=== PATIENT | female | born 1960 | race Caucasian/White ===

== ENCOUNTER 2023-08-21 18:01 | Observation (INO) | payer OTHER ==
[2023-08-21] MEDS ORDERED: ASPIRIN 81 MG PO STA (18:27)
[2023-08-21] MEDS ORDERED: SODIUM CHLORIDE 0.9% 1,000 ML IV STA (18:27)
[2023-08-21] MEDS ORDERED: NITROGLYCERIN SL TABS 0.4 MG TAB SUBLINGUAL STA (18:27)
[2023-08-21 18:39] LABS: Basophils # (A) 0.1 k/uL (0-0.2); Basophils % (A) 1 %; Eosinophils # (A) 0.1 k/uL (0-0.7); Eosinophils % (A) 1 %; HCT 41.3 % (34.0-46.0); HGB 14.1 gm/dL (11.4-16.0); Lymphocytes % (A) 37 %; MCH 31.1 pg (25.0-35.0); MCHC 34.2 g/dL (31.0-37.0); MCV 91.2 fL (80.0-100.0); Mean Platelet Volume 7.6; Monocytes # (A) 0.3 k/uL (0-1.0); Monocytes % (A) 5 %; Neutrophils % (A) 54 %; Platelet Count 279 k/uL (150-450); RBC 4.53 m/uL (3.80-5.40); RDW 12.6 % (11.5-15.5); WBC 5.5 k/uL (3.8-10.6)
[2023-08-21 18:52] LABS: ALT 21 U/L (4-34); AST 29 U/L (14-36); African American GFR (CKD) >90 (>60 ml/min/1.73 sqM); Albumin 4.9 g/dL (3.5-5.0); Alkaline Phosphatase 71 U/L (38-126); Anion Gap 9 mmol/L; Blood Urea Nitrogen 11 mg/dL (7-17); Calcium 10.2 mg/dL (8.4-10.2); Carbon Dioxide 28 mmol/L (22-30); Chloride 105 mmol/L (98-107); Glucose 84 mg/dL (74-99); Lipase 123 U/L (23-300); Non-African American GFR(CKD) 89 (>60 ml/min/1.73 sqM); Partial Thromboplastin Time 24.6 sec (22.0-30.0); Prothrombin Time 10.2 sec (9.0-12.0); Sodium 142 mmol/L (137-145); Total Bilirubin 0.5 mg/dL (0.2-1.3); Total Protein 8.1 g/dL (6.3-8.2)
--- NOTE | 2023-08-21 18:58 | XR ---
EXAMINATION TYPE: XR chest 2V DATE OF EXAM: 08/21/2023 COMPARISON: NONE TECHNIQUE: PA and lateral views submitted. HISTORY: Chest pain FINDINGS: The lungs are clear and there is no pneumothorax, pleural effusion, or focal pneumonia. Heart size normal and no overt failure. Osseous structures demonstrate hypertrophic and degenerative changes of the spine. Hyperinflation lungs suggest COPD. IMPRESSION: 1. No acute process.
[2023-08-21 19:00] LABS: NT-Pro-B-Type Natriuretic Pept 167 pg/mL
[2023-08-21] MEDS ORDERED: KETOROLAC 15 MG/ML 1 ML VIAL IVP STA (19:25)
[2023-08-21] MEDS ORDERED: LORazepam 0.5 MG TAB PO STA (22:57)
[2023-08-21] MEDS ORDERED: NALOXONE 0.4 MG/ML 1 ML VIAL IV PRN (23:07)
--- NOTE | 2023-08-21 23:07 | ED ---
General Adult HPI - General Chief complaint: Chest Pain Stated complaint: chest pain Time Seen by Provider: 08/21/23 18:07 Source: patient, RN notes reviewed, old records reviewed Mode of arrival: ambulatory Limitations: no limitations - History of Present Illness Initial comments: Patient is a 63-year-old female who presents emergency department with chest pain. Has had that intermittently over the last 2-3 weeks. States it is somewhat of a discomfort that radiates across her front chest. Occasionally in her back but currently does not have that. Denies any lightheadedness or shortness breath. Denies any abdominal pain, nausea, vomiting. No known palliative or provocative factors. Not worse with movement or palpation. No nausea or vomiting. States it does somewhat radiate towards her shoulders/arms. No cardiac history. Does have a history of hyperlipidemia. - Related Data Home Medications Medication Instructions Recorded Confirmed Alendronate Sodium [Fosamax] 70 mg PO TU 08/21/23 08/21/23 Atorvastatin [Lipitor] 20 mg PO HS 08/21/23 08/21/23 Calcium(Unknown Dose) 1 tab PO DAILY 08/21/23 08/21/23 Co Q-10(Unknown Dose) 1 tab PO DAILY 08/21/23 08/21/23 Cranberry(Unknown Dose) 1 tab PO DAILY 08/21/23 08/21/23 L.acidoph,Paracasei, B.lactis 1 cap PO DAILY 08/21/23 08/21/23 [Probiotic] Multivitamins, Thera [Multivitamin 1 tab PO DAILY 08/21/23 08/21/23 (formulary)] Vitamin D3(Unknown Dose) 1 tab PO DAILY 08/21/23 08/21/23 Allergies Allergy/AdvReac Type Severity Reaction Status Date / Time No Known Allergies Allergy Verified 08/21/23 20:09 Review of Systems ROS Statement: Those systems with pertinent positive or pertinent negative responses have been documented in the HPI. Review of Systems: CONST: Denies fever EYES: Denies blurry vision ENT: Denies nasal congestion C/V: Endorses chest pain RESP: Denies shortness of breath GI: Denies abdominal pain : Denies dysuria SKIN: Denies rash. MSK: Denies joint pain. NEURO: Denies headache ROS Other: All systems not noted in ROS Statement are negative. Past Medical History Past Medical History: Hyperlipidemia History of Any Multi-Drug Resistant Organisms: None Reported Past Surgical History: No Surgical Hx Reported Smoking Status: Never smoker Past Alcohol Use History: None Reported Past Drug Use History: None Reported General Exam - General Exam Comments Initial Comments: General: Appears in no acute distress. HEAD: Normal with no signs of head trauma. EYES: PERRLA, EOMI, conjunctiva normal, no discharge. ENT: Hearing grossly intact, normal oropharynx. RESPIRATORY: Clear breath sounds bilaterally. No wheezes, rales, or rhonchi. C/V: Regular rate and rhythm. S1 and S2 auscultated, no edema, peripheral pulses 2+ and intact throughout. Chest pain is nonreproducible on palpation. ABD: Abd is soft, nontender, nondistended EXT: Normal range of motion, no obvious deformity SKIN: No rashes or lesions observed on exposed skin. NEURO: Alert and oriented 4. Limitations: no limitations Course Vital Signs 08/21/23 08/21/23 08/21/23 18:02 18:15 18:47 Temperature 97.2 F L Pulse Rate 68 77 Pulse Rate [ 70 Controller Mechanic ] Respiratory 20 18 Rate Blood Pressure 191/94 169/79 O2 Sat by Pulse 98 99 Oximetry 08/21/23 19:38 Temperature Pulse Rate 70 Pulse Rate [ Controller Mechanic ] Respiratory 18 Rate Blood Pressure 142/77 O2 Sat by Pulse 99 Oximetry Medical Decision Making - Medical Decision Making Was pt. sent in by a medical professional or institution ([facility], IT BUSINESS PROCESS ARCHITECT, urgent care, hospital, or [facility]...) When possible be specific @ -No Did you speak to anyone other than the patient for history (EMS, parent, family, police, friend...)? What history was obtained from this source @ -No Did you review nursing and triage notes (agree or disagree)? Why? @ -I reviewed and agree with nursing and triage notes Were old charts reviewed (outside hosp., previous admission, EMS record, old EKG, old radiological studies, urgent care reports/EKG's, [facility] records)? Report findings @ -Old charts reviewed Differential Diagnosis (chest pain, altered mental status, abdominal pain women, abdominal pain men, vaginal bleeding, weakness, fever, dyspnea, syncope, headache, dizziness, GI bleed, back pain, seizure, CVA, palpatations, mental health, musculoskeletal)? @ -Differential Chest Pain: Stable Angina, Unstable Angina, STEMI, NSTEMI Aortic Dissection, Pneumothorax, Musculoskeletal, Esophageal Spasm GERD, Cholecystitis, Pancreatitis, Zoster, this is not meant to be an all-inclusive list. EKG interpreted by me (3pts min.). @ -As above X-rays interpreted by me (1pt min.). @ -Chest x-ray reveals no obvious acute cardio pulmonary process. CT interpreted by me (1pt min.). @ -None done U/S interpreted by me (1pt. min.). @ -None done What testing was considered but not performed or refused? (CT, X-rays, U/S, labs)? Why? @ -None What meds were considered but not given or refused? Why? @ -None Did you discuss the management of the patient with other professionals (professionals i.e. , PA, IT BUSINESS PROCESS ARCHITECT, lab, RT, psych nurse, social work coordinator, handbag operator, te acher, morale officer, piano case and bench assembler)? Give summary @ -Discussed with the admitting team, Dr. davis accepted the patient. Was smoking cessation discussed for >3mins.? @ -No Was critical care preformed (if so, how long)? @ -No Were there social determinants of health that impacted care today? How? (Homelessness, low income, unemployed, alcoholism, drug addiction, transportation, low edu. Level, literacy, decrease access to med. care, snf, rehab)? @ -No Was there de-escalation of care discussed even if they declined (Discuss DNR or withdrawal of care, Hospice)? DNR status @ -No What co-morbidities impacted this encounter? (DM, HTN, Smoking, COPD, CAD, Cancer, CVA, ARF, Chemo, Hep., AIDS, mental health diagnosis, sleep apnea, morbid obesity)? @ -None Was patient admitted / discharged? Hospital course, mention meds given and route, prescriptions, significant lab abnormalities, going to OR and other pertinent info. @ -Based on the patient's presentation and physical exam, presents with chest pain of unknown etiology. Worse over the last 3 days. Has been intermittent for the last 2 weeks. We will obtain cardiopulmonary workup. She was in agreement with this plan. Vital signs within acceptable limits although patient is a little hypertensive. We will initially attempt to treat the pain with nitroglycerin tablets and she will receive 324 mg of aspirin. EKGs, obtained twice were within acceptable limits with no evidence of acute ischemic process. Patient's laboratory studies were remarkable for a d-dimer within normal limits. Undetectable troponin. Vital signs negative. Chest x- ray unremarkable. Nitroglycerin tablets did not affect the chest pain. Patient received Toradol which did help with her headache as well as chest pain. At this time and did offer admission for chest pain as the patient's heart score is 4. Patient however would like to consider it and therefore we will order a second troponin the meantime. I believe this is reasonable. Before second troponins to back, patient did accept admission and observation. I spoke with the admitting physician, Dr. Davis accept the patient. This was a delay for patient's admission. Undiagnosed new problem with uncertain prognosis? @ -No Drug Therapy requiring intensive monitoring for toxicity (Heparin, Nitro, Insulin, Cardizem)? @ -No Were any procedures done? @ -No Diagnosis/symptom? @ -Chest pain Acute, or Chronic, or Acute on Chronic? @ -Acute Uncomplicated (without systemic symptoms) or Complicated (systemic symptoms)? @ -Uncomplicated Side effects of treatment? @ -No Exacerbation, Progression, or Severe Exacerbation? @ -No Poses a threat to life or bodily function? How? (Chest pain, [place], [place], pneumonia, PE, COPD, DKA, ARF, appy, cholecystitis, CVA, Diverticulitis, Homicidal, Suicidal, threat to staff... and all critical care pts) @ -Possibly - Lab Data Result diagrams: 08/21/23 18:32 08/21/23 18:32 Lab Results 08/21/23 08/21/23 08/21/23 Range/Units 18:32 18:32 18:32 WBC 5.5 (3.8-10.6) k/uL RBC 4.53 (3.80-5.40) m/uL Hgb 14.1 (11.4-16.0) gm/dL Hct 41.3 (34.0-46.0) % MCV 91.2 (80.0-100.0) fL MCH 31.1 (25.0-35.0) pg MCHC 34.2 (31.0-37.0) g/dL RDW 12.6 (11.5-15.5) % Plt Count 279 (150-450) k/uL MPV 7.6 Neutrophils % 54 % Lymphocytes % 37 % Monocytes % 5 % Eosinophils % 1 % Basophils % 1 % Neutrophils # 3.0 (1.3-7.7) k/uL Lymphocytes # 2.0 (1.0-4.8) k/uL Monocytes # 0.3 (0-1.0) k/uL Eosinophils # 0.1 (0-0.7) k/uL Basophils # 0.1 (0-0.2) k/uL PT 10.2 (9.0-12.0) sec INR 1.0 (<1.2) APTT 24.6 (22.0-30.0) sec D-Dimer 0.22 (<0.60) mg/L FEU Sodium 142 (137-145) mmol/L Potassium 4.0 (3.5-5.1) mmol/L Chloride 105 (98-107) mmol/L Carbon Dioxide 28 (22-30) mmol/L Anion Gap 9 mmol/L BUN 11 (7-17) mg/dL Creatinine 0.73 (0.52-1.04) mg/dL Est GFR (CKD-EPI)AfAm >90 (>60 ml/min/1.73 sqM) Est GFR (CKD-EPI)NonAf 89 (>60 ml/min/1.73 sqM) Glucose 84 (74-99) mg/dL Calcium 10.2 (8.4-10.2) mg/dL Magnesium 2.0 (1.6-2.3) mg/dL Total Bilirubin 0.5 (0.2-1.3) mg/dL AST 29 (14-36) U/L ALT 21 (4-34) U/L Alkaline Phosphatase 71 (38-126) U/L Troponin I (0.000-0.034) ng/mL NT-Pro-B Natriuret Pep 167 pg/mL Total Protein 8.1 (6.3-8.2) g/dL Albumin 4.9 (3.5-5.0) g/dL Lipase 123 (23-300) U/L Influenza Type A (PCR) (Not Detectd) Influenza Type B (PCR) (Not Detectd) RSV (PCR) (Not Detectd) SARS-CoV-2 (PCR) (Not Detectd) 08/21/23 08/21/23 Range/Units 18:32 18:47 WBC (3.8-10.6) k/uL RBC (3.80-5.40) m/uL Hgb (11.4-16.0) gm/dL Hct (34.0-46.0) % MCV (80.0-100.0) fL MCH (25.0-35.0) pg MCHC (31.0-37.0) g/dL RDW (11.5-15.5) % Plt Count (150-450) k/uL MPV Neutrophils % % Lymphocytes % % Monocytes % % Eosinophils % % Basophils % % Neutrophils # (1.3-7.7) k/uL Lymphocytes # (1.0-4.8) k/uL Monocytes # (0-1.0) k/uL Eosinophils # (0-0.7) k/uL Basophils # (0-0.2) k/uL PT (9.0-12.0) sec INR (<1.2) APTT (22.0-30.0) sec D-Dimer (<0.60) mg/L FEU Sodium (137-145) mmol/L Potassium (3.5-5.1) mmol/L Chloride (98-107) mmol/L Carbon Dioxide (22-30) mmol/L Anion Gap mmol/L BUN (7-17) mg/dL Creatinine (0.52-1.04) mg/dL Est GFR (CKD-EPI)AfAm (>60 ml/min/1.73 sqM) Est GFR (CKD-EPI)NonAf (>60 ml/min/1.73 sqM) Glucose (74-99) mg/dL Calcium (8.4-10.2) mg/dL Magnesium (1.6-2.3) mg/dL Total Bilirubin (0.2-1.3) mg/dL AST (14-36) U/L ALT (4-34) U/L Alkaline Phosphatase (38-126) U/L Troponin I <0.012 (0.000-0.034) ng/mL NT-Pro-B Natriuret Pep pg/mL Total Protein (6.3-8.2) g/dL Albumin (3.5-5.0) g/dL Lipase (23-300) U/L Influenza Type A (PCR) Not Detected (Not Detectd) Influenza Type B (PCR) Not Detected (Not Detectd) RSV (PCR) Not Detected (Not Detectd) SARS-CoV-2 (PCR) Not Detected (Not Detectd) - EKG Data -: EKG Interpreted by Me EKG Comments: 12-lead Electrocardiogram Interpretation Note EKG was reviewed and interpreted by myself. 12-lead ECG performed at 181 is interpreted by me as revealing normal sinus rhythm at a rate of 67 beats per minute. [place] is normal. ID interval is 159 ms, QRS duration is 86 seconds, QTC is 416 ms. There were no ST or T wave abnormalities to suggest myocardial i schemia or injury. R wave progression across the precordium was satisfactory. By my interpretation this EKG is non-diagnostic for acute ischemia. 12-lead Electrocardiogram Interpretation Note EKG was reviewed and interpreted by myself. 12-lead ECG performed at 2021 is interpreted by me as revealing normal sinus rhythm at a rate of 62 beats per minute. [place] is normal. ID interval is 163 ms, QRS duration is 92 ms, QTc is 426 ms.. There were no ST or T wave abnormalities to suggest myocardial ischemia or injury. R wave progression across the precordium was satisfactory. By my interpretation this EKG is non-diagnostic for acute ischemia. Disposition Clinical Impression: Chest pain Disposition: ADMITTED IP TO THIS HOSP Condition: Stable Referrals: Jeremiah Zavaleta MD [Primary Care Provider] - 1-2 days Time of Disposition: 22:00
[2023-08-22] MEDS: HEPARIN SODIUM,PORCINE 5,000 UNIT/ML 1 ML VIAL SQ SCH ×4 (01:05→22:58)
[2023-08-22 06:52] LABS: Basophils % (A) 1 %; Eosinophils # (A) 0.1 k/uL (0-0.7); Eosinophils % (A) 2 %; HCT 37.7 % (34.0-46.0); HGB 12.6 gm/dL (11.4-16.0); Lymphocytes # (A) 1.5 k/uL (1.0-4.8); Lymphocytes % (A) 32 %; MCHC 33.5 g/dL (31.0-37.0); MCV 92.7 fL (80.0-100.0); Mean Platelet Volume 7.4; Monocytes # (A) 0.3 k/uL (0-1.0); Monocytes % (A) 6 %; Neutrophils # (A) 2.6 k/uL (1.3-7.7); Neutrophils % (A) 57 %; Platelet Count 254 k/uL (150-450); RBC 4.06 m/uL (3.80-5.40); RDW 12.7 % (11.5-15.5); WBC 4.5 k/uL (3.8-10.6)
[2023-08-22 07:12] LABS: African American GFR (CKD) >90 (>60 ml/min/1.73 sqM); Anion Gap 7 mmol/L; Blood Urea Nitrogen 11 mg/dL (7-17); Calcium 8.9 mg/dL (8.4-10.2); Carbon Dioxide 27 mmol/L (22-30); Chloride 106 mmol/L (98-107); Glucose 79 mg/dL (74-99); Non-African American GFR(CKD) >90 (>60 ml/min/1.73 sqM); Potassium 4.1 mmol/L (3.5-5.1); Sodium 140 mmol/L (137-145)
[2023-08-22] MEDS: KETOROLAC 15 MG/ML 1 ML VIAL IVP PRN ×2 (09:31→20:11)
[2023-08-22] MEDS: MULTIVITAMINS, THERA 1 EACH TAB PO SCH (13:23)
[2023-08-22] MEDS: LOSARTAN 25 MG TAB PO SCH (13:23)
[2023-08-22] MEDS: LACTOBACILLUS ACIDOPHILUS/PECT 1 EACH CAPSULE PO SCH (13:25)
--- NOTE | 2023-08-22 13:37 | P.CRDCN ---
History of Present Illness Consult date: 08/22/23 Consult reason: chest pain History of present illness: The patient is a 63-year-old female with past medical history of hyperlipidemia, who presents to the hospital with chest pain. The patient was recently seen in her primary care provider's office on when she reported new onset of headaches with chest pain under her bilateral ribs that radiates through to her back. She states her blood pressure was controlled at that visit but was noted to have an abnormal EKG. This was reviewed by Dr. Huang, who suggested follow-up within the next 2 weeks. The patient's symptoms persisted, therefore she presented to the emergency room and was noted to have elevated blood pressure readings in the 170s. She also states that she had received her second shingles vaccine approximately 2 weeks ago. No evidence of rash on her thorax. DIAGNOSTICS: EKG showed sinus mechanism with nonspecific ST and T wave abnormalities No acute cardiopulmonary process on chest x-ray Lab data: WBC 4.5, hemoglobin 12.6, hematocrit 37.7, platelet 254, d-dimer 0.22, sodium 140, potassium 4.1, BUN 11, creatinine 0.66, troponin negative 3, AST 29, ALT 21 REVIEW OF SYSTEMS: No fever or chills. No cough or expectoration. No diaphoresis. Patient denies headache, dizziness, blurred vision, double vision. Patient denies any stomach discomfort. No nausea, vomiting. No hematochezia. No hematemesis. Denies any black stools or blood in his stools. Denies dysuria or hematuria. No muscle weakness or numbness. PHYSICAL EXAMINATION: This is a 63-year-old female in no apparent distress at the time of my examination. HEENT: Head is atraumatic, normocephalic. Neck is supple. There is no jugular venous distention. No carotid bruit is heard. CHEST EXAMINATION: Lungs are clear to auscultation. No chest wall tenderness is noted on palpation or with deep breathing. HEART EXAMINATION: Heart regular rate and rhythm. S1, S2 heard. No murmurs, gallops or rub. ABDOMEN: Soft, nontender. Bowel sounds are heard. No organomegaly noted. EXTREMITIES: 2+ peripheral pulses with no evidence of peripheral edema and no calf tenderness noted. NEUROLOGIC EXAMINATION: Patient is awake, alert and oriented x3. FINAL ASSESSMENT AND PLAN: Chest pain New onset of hypertension History of dyslipidemia PLAN: Start losartan 25 mg daily Echocardiogram to assess heart structure and function Exercise stress echocardiogram to rule out ischemia with chest pain If testing is unremarkable, the patient may be discharged thereafter and follow up outpatient with Dr. Huang as previously scheduled I am dictating on behalf of Dr Salazar Mackey's history/physical and asses sment/plan. Past Medical History Past Medical History: Hyperlipidemia History of Any Multi-Drug Resistant Organisms: None Reported Past Surgical History: Heart Catheterization Smoking Status: Never smoker Past Alcohol Use History: None Reported Past Drug Use History: None Reported Medications and Allergies Home Medications Medication Instructions Recorded Confirmed Type Alendronate Sodium [Fosamax] 70 mg PO TU 08/21/23 08/21/23 History Atorvastatin [Lipitor] 20 mg PO HS 08/21/23 08/21/23 History Calcium(Unknown Dose) 1 tab PO DAILY 08/21/23 08/21/23 History Co Q-10(Unknown Dose) 1 tab PO DAILY 08/21/23 08/21/23 History Cranberry(Unknown Dose) 1 tab PO DAILY 08/21/23 08/21/23 History L.acidoph,Paracasei, B.lactis 1 cap PO DAILY 08/21/23 08/21/23 History [Probiotic] Multivitamins, Thera [Multivitamin 1 tab PO DAILY 08/21/23 08/21/23 History (formulary)] Vitamin D3(Unknown Dose) 1 tab PO DAILY 08/21/23 08/21/23 History Allergies Allergy/AdvReac Type Severity Reaction Status Date / Time No Known Allergies Allergy Verified 08/21/23 20:09 Physical Exam Vitals: Vital Signs Temp Pulse Pulse Resp BP BP BP 08/22/23 12:31 159/84 08/22/23 07:00 97.6 F 67 15 148/75 08/22/23 06:00 62 18 133/79 08/22/23 04:00 79 18 124/73 08/22/23 02:00 83 18 129/73 08/21/23 19:38 70 18 142/77 08/21/23 18:47 77 18 169/79 08/21/23 18:15 70 08/21/23 18:02 97.2 F L 68 20 191/94 Pulse Ox 08/22/23 12:31 08/22/23 07:00 100 10/01/23 06:00 98 08/22/23 04:00 97 08/22/23 02:00 98 08/21/23 19:38 99 08/21/23 18:47 99 08/21/23 18:15 08/21/23 18:02 98 Intake and Output 08/21/23 08/22/23 08/22/23 22:59 06:59 14:59 Other: # Voids 1 Weight 60.328 kg 60.328 kg Results 08/22/23 05:55 08/22/23 05:55 Cardiac Enzymes 08/21/23 08/21/23 08/21/23 Range/Units 18:32 18:32 23:03 AST 29 (14-36) U/L Troponin I <0.012 <0.012 (0.000-0.034) ng/mL 08/22/23 Range/Units 02:05 AST (14-36) U/L Troponin I <0.012 (0.000-0.034) ng/mL Coagulation 08/21/23 Range/Units 18:32 PT 10.2 (9.0-12.0) sec APTT 24.6 (22.0-30.0) sec CBC 08/21/23 08/22/23 Range/Units 18:32 05:55 WBC 5.5 4.5 (3.8-10.6) k/uL RBC 4.53 4.06 (3.80-5.40) m/uL Hgb 14.1 12.6 (11.4-16.0) gm/dL Hct 41.3 37.7 (34.0-46.0) % Plt Count 279 254 (150-450) k/uL Comprehensive Metabolic Panel 08/21/23 08/22/23 Range/Units 18:32 05:55 Sodium 142 140 (137-145) mmol/L Potassium 4.0 4.1 (3.5-5.1) mmol/L Chloride 105 106 (98-107) mmol/L Carbon Dioxide 28 27 (22-30) mmol/L BUN 11 11 (7-17) mg/dL Creatinine 0.73 0.66 (0.52-1.04) mg/dL Glucose 84 79 (74-99) mg/dL Calcium 10.2 8.9 (8.4-10.2) mg/dL AST 29 (14-36) U/L ALT 21 (4-34) U/L Alkaline Phosphatase 71 (38-126) U/L Total Protein 8.1 (6.3-8.2) g/dL Albumin 4.9 (3.5-5.0) g/dL Current Medications Generic Name Dose Route Start Last Admin Trade Name Freq PRN Reason Stop Dose Admin Atorvastatin Calcium 20 mg 08/22/23 21:00 Atorvastatin 20 Mg Tab PO HS LULI Heparin Sodium (Porcine) 5,000 unit 08/22/23 00:00 08/22/23 09:32 Heparin Sodium,Porcine 5,000 Unit/Ml 1 Ml Vial SQ 5,000 unit Q8HR LULI Administration Ketorolac Tromethamine 15 mg 08/21/23 23:07 08/22/23 09:31 Ketorolac 15 Mg/Ml 1 Ml Vial IVP 08/24/23 23:08 15 mg Q6HR PRN Administration Moderate Pain (Scale 4 to 6) Lactobacillus Acidophilus 1 each 08/22/23 12:30 Lactobacillus Acidophilus/Pect 1 Each Capsule PO DAILY [facility] Losartan Potassium 25 mg 08/22/23 12:30 Losartan 25 Mg Tab PO DAILY [facility] Multivitamins 1 each 08/22/23 12:30 Multivitamins, Thera 1 Each Tab PO DAILY [facility] Naloxone HCl 0.2 mg 08/21/23 23:07 Naloxone 0.4 Mg/Ml 1 Ml Vial IV Q2M PRN Opioid Reversal Intake and Output 08/21/23 08/22/23 08/22/23 22:59 06:59 14:59 Other: # Voids 1 Weight 60.328 kg 60.328 kg Patient Weight 08/23/23 06:59 Weight 60.328 kg 08/22/23 05:55 08/22/23 05:55
[2023-08-22 16:53] VITALS: RESP 16
[2023-08-22] MEDS: ATORVASTATIN 20 MG TAB PO SCH (20:11)
[2023-08-22] MEDS ORDERED: ZOLPIDEM 5 MG TAB PO SCH (21:00)
--- NOTE | 2023-08-22 21:01 | P.HPIM ---
History of Present Illness H&P Date: 08/22/23 Chief Complaint: Chest pain Pleasant 63-year-old patient who follows with Jeremiah Zavaleta. Patient's fairly good health. Except for hyperlipidemia. 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 Patient of the shingles vaccination short about 17 days ago. Has had some headache off and on. About 2 weeks ago started having some chest discomfort on and off. Not related to activity. Central. No radiation. Patient is chronically stressed out with decreased sleep. No fever no chills. Had a cardiac catheterization 2008 that was unremarkable. Was concerned about a cardiac cause hence presented. Review of systems: GEN.: Tired EYES: None HEENT: None NECK: None RESPIRATORY: None CARDIOVASCULAR: [As above GASTROINTESTINAL: None GENITOURINARY: None MUSCULOSKELETAL: None LYMPHATICS: None HEMATOLOGICAL: None PSYCHIATRY: Anxious NEUROLOGICAL: Poor sleep Past medical history to include: Hyperlipidemia Social history: This is a . Takes care of [id number] autistic child. Physical examination: VITAL SIGNS: 97.6, 67, 15, 148/75, 100% room air GENERAL: [Average built, sitting up in a chair, comfortable EYES: Pupils equal. Conjunctiva normal. HEENT: External appearance of nose and ears normal, oral cavity grossly normal. NECK: JVD not raised; masses not palpable. HEART: First and second heart sounds are normal; no edema. LUNGS: Respiratory rate normal; clear to auscultation. ABDOMEN: Soft, nontender, liver spleen not palpable, no masses palpable. PSYCH: [Alert and oriented x3; mood and affect anxious, tired appearing. MUSCULOSKELETAL:No Clubbing/cyanosis;muscles-grossly intact NEUROLOGICAL: Cranial nerves grossly intact; no facial asymmetry, power and sensation grossly intact. LYMPHATICS: No lymph nodes palpable in the axilla and neck INVESTIGATIONS, reviewed in the clinical context: White count 4.5 hemoglobin 12.6 platelets 254 potassium 4.1 creatinine 0.66 Troponin I 3 negative Influenza type A, B, RSV, COVID-19: Not detected EKG tracing personally reviewed by me-some ST segment depression in inferior lateral leads. Chest x-ray film personally reviewed by me-unremarkable Assessment plan: -Anterior chest wall pain somewhat atypical for cardiac. Patient has some subtle EKG changes in the inferolateral leads. Rule out a cardiac cause. Troponin is negative. Seen by cardiology. For stress echocardiogram. -Hyperlipidemia Lipitor -Social stresses from taking care of autistic child -Chronic insomnia from social stressors Ambien 5 mg daily at bedtime Discussed with patient. Stress echocardiogram Past Medical History Past Medical History: Hyperlipidemia History of Any Multi-Drug Resistant Organisms: None Reported Past Surgical History: Heart Catheterization Smoking Status: Never smoker Past Alcohol Use History: None Reported Past Drug Use History: None Reported Medications and Allergies Home Medications Medication Instructions Recorded Confirmed Type Alendronate Sodium [Fosamax] 70 mg PO TU 08/21/23 08/21/23 History Atorvastatin [Lipitor] 20 mg PO HS 08/21/23 08/21/23 History Calcium(Unknown Dose) 1 tab PO DAILY 08/21/23 08/21/23 History Co Q-10(Unknown Dose) 1 tab PO DAILY 08/21/23 08/21/23 History Cranberry(Unknown Dose) 1 tab PO DAILY 08/21/23 08/21/23 History L.acidoph,Paracasei, B.lactis 1 cap PO DAILY 08/21/23 08/21/23 History [Probiotic] Multivitamins, Thera [Multivitamin 1 tab PO DAILY 08/21/23 08/21/23 History (formulary)] Vitamin D3(Unknown Dose) 1 tab PO DAILY 08/21/23 08/21/23 History Allergies Allergy/AdvReac Type Severity Reaction Status Date / Time No Known Allergies Allergy Verified 08/21/23 20:09 Physical Exam Vitals: Vital Signs Temp Pulse Pulse Resp BP BP Pulse Ox 08/22/23 07:00 97.6 F 67 15 148/75 100 08/22/23 06:00 62 18 133/79 98 08/22/23 04:00 79 18 124/73 97 08/22/23 02:00 83 18 129/73 98 08/21/23 19:38 70 18 142/77 99 08/21/23 18:47 77 18 169/79 99 08/21/23 18:15 70 08/21/23 18:02 97.2 F L 68 20 191/94 98 Intake and Output 08/21/23 08/22/23 08/22/23 22:59 06:59 14:59 Other: Weight 60.328 kg 60.328 kg Results CBC & Chem 7: 08/22/23 05:55 08/22/23 05:55 Thrombosis Risk Factor Assmnt - Choose All That Apply Any of the Below Risk Factors Present?: No Other Risk Factors: Yes Each Risk Factor Represents 2 Points: Age 61-74 years Thrombosis Risk Factor Assessment Total Risk Factor Score: 2 Thrombosis Risk Factor Assessment Level: Low Risk
[2023-08-23] MEDS: HEPARIN SODIUM,PORCINE 5,000 UNIT/ML 1 ML VIAL SQ SCH ×2 (09:01→14:27)
--- NOTE | 2023-08-23 09:41 | P.PN ---
Subjective Progress Note Date: 08/23/23 The patient is a 63-year-old female with past medical history of hyperlipidemia, who presents to the hospital with chest pain. The patient was recently seen in her primary care provider's office on when she reported new onset of headaches with chest pain under her bilateral ribs that radiates through to her back. She states her blood pressure was controlled at that visit but was noted to have an abnormal EKG. This was reviewed by Dr. Huang, who suggested follow-up within the next 2 weeks. The patient's symptoms persisted, therefore she presented to the emergency room and was noted to have elevated blood pressure readings in the 170s. She also states that she had received her second shingles vaccine approximately 2 weeks ago. No evidence of rash on her thorax. DIAGNOSTICS: EKG showed sinus mechanism with nonspecific ST and T wave abnormalities No acute cardiopulmonary process on chest x-ray Lab data: WBC 4.5, hemoglobin 12.6, hematocrit 37.7, platelet 254, d-dimer 0.22, sodium 140, potassium 4.1, BUN 11, creatinine 0.66, troponin negative 3, AST 29, ALT 21 08/23 Patient is seen today in follow-up. She is scheduled for exercise stress echocardiogram today. We will also add in echocardiogram. Patient states she still has a headache but it is better. Blood pressure readings are much improved. She has occasional funny feeling in her chest particularly when she lays down. PHYSICAL EXAMINATION: This is a 63-year-old female in no apparent distress at the time of my examination. HEENT: Head is atraumatic, normocephalic. Neck is supple. There is no jugular venous distention. No carotid bruit is heard. CHEST EXAMINATION: Lungs are clear to auscultation. No chest wall tenderness is noted on palpation or with deep breathing. HEART EXAMINATION: Heart regular rate and rhythm. S1, S2 heard. No murmurs, gallops or rub. EXTREMITIES: 2+ peripheral pulses with no evidence of peripheral edema and no calf tenderness noted. NEUROLOGIC EXAMINATION: Patient is awake, alert and oriented x3. FINAL ASSESSMENT AND PLAN: Chest pain New onset of hypertension History of dyslipidemia PLAN: Continue losartan 25 mg daily Echocardiogram to assess heart structure and function Exercise stress echocardiogram to rule out ischemia with chest pain If testing is unremarkable, the patient may be discharged thereafter and follow up outpatient with Dr. Huang as previously scheduled. Nurse practitioner note has been reviewed, I agree with the documented findings and plan of care. Patient was seen and examined. Objective - Vital Signs Vital signs: Vital Signs Temp 98.2 F 08/23/23 07:00 Pulse 63 08/23/23 07:00 Resp 16 08/23/23 07:00 BP 124/73 08/23/23 07:00 Pulse Ox 100 08/23/23 07:00 FiO2 Intake & Output 08/22/23 08/23/23 08/23/23 18:59 06:59 18:59 Weight 60.328 kg Other: Voiding Method Toilet # Voids 1 2 - Labs CBC & Chem 7: 08/22/23 05:55 08/22/23 05:55
[2023-08-23] MEDS: MULTIVITAMINS, THERA 1 EACH TAB PO SCH (10:10)
[2023-08-23] MEDS: LACTOBACILLUS ACIDOPHILUS/PECT 1 EACH CAPSULE PO SCH (10:10)
[2023-08-23] MEDS: LOSARTAN 25 MG TAB PO SCH ×2 (12:46→20:30)
[2023-08-23 15:47] VITALS: PULSE 71; TEMP 97.9
--- NOTE | 2023-08-23 17:53 | CA ---
Transthoracic Echo Report Name: Eileen Horton Age: 63 Gender: F : 1960 Exam Date: 08/23/2023 11:40 Exam Location: [facility] Ht (in): 63 Wt (lb): 133 Ordering Physician: Kay Simpson Attending/Referring Phys: [id number], Calvin Emergency Care Tech Breonna Guzman [facility] Procedure CPT: Indications: LVF Cardiac Hx: Technical Quality: Fair Contrast 1: Total Dose (mL): Contrast 2: Total Dose (mL): MEASUREMENTS (Male / Female) Normal Values 2D ECHO LV Diastolic Diameter PLAX 4.5 cm 4.2 - 5.9 / 3.9 - 5.3 cm LV Systolic Diameter PLAX 3.4 cm IVS Diastolic Thickness 0.5 cm 0.6 - 1.0 / 0.6 - 0.9 cm LVPW Diastolic Thickness 0.8 cm 0.6 - 1.0 / 0.6 - 0.9 cm LV Relative Wall Thickness 0.3 LVOT Diameter 2.0 cm Ascending Aorta Diameter 2.9 cm M-MODE Aortic Root Diameter MM 2.5 cm LA Systolic Diameter MM 2.5 cm LA Ao Ratio MM 1.0 AV Cusp Separation MM 1.8 cm DOPPLER AV Peak Velocity 145.4 cm/s AV Peak Gradient 8.5 mmHg AV Mean Velocity 109.5 cm/s AV Mean Gradient 5.1 mmHg AV Velocity Time Integral 24.6 cm LVOT Peak Velocity 113.1 cm/s LVOT Peak Gradient 5.1 mmHg LVOT Velocity Time Integral 18.6 cm LVOT Stroke Volume 56.8 cm??? LVOT Stroke Volume Index 34.9 ml/m??? LVOT Cardiac Index 3071.1 cm???/min???m??? AV Area Cont Eq vti 2.3 cm??? AV Area Cont Eq pk 2.4 cm??? Mitral E Point Velocity 63.7 cm/s Mitral A Point Velocity 78.8 cm/s Mitral E to A Ratio 0.8 MV Deceleration Time 152.9 ms LV E' Lateral Velocity 13.7 cm/s Mitral E to LV E' Lateral Ratio 4.7 LV E' Septal Velocity 8.4 cm/s Mitral E to LV E' Septal Ratio 7.6 TR Peak Velocity 228.3 cm/s TR Peak Gradient 20.9 mmHg Right Atrial Pressure 3.0 mmHg Pulmonary Artery Systolic Pressu 23.9 mmHg Right Ventricular Systolic Press 24.9 mmHg FINDINGS Left Ventricle Left ventricular cavity size normal. Left ventricular wall thickness normal. Normal left ventricular systolic function with no obvious regional wall motion abnormalities. Left ventricular ejection fraction is estimated at 55-60%. Right Ventricle Normal right ventricular size. Right Atrium Normal right atrial size. Left Atrium Normal left atrial size. Mitral Valve Structurally normal mitral valve. Trace mitral regurgitation. Aortic Valve Trileaflet aortic valve. Thickening (sclerosis) of the aortic valve cusps without reduced excursion. No aortic regurgitation. Tricuspid Valve Structurally normal tricuspid valve. Trace tricuspid regurgitation. Pulmonic Valve Pulmonic valve not well visualized. Pericardium Minimal pericardial effusion (normal variant). Aorta Normal size aortic root and proximal ascending aorta. CONCLUSIONS Left ventricular systolic function is normal Previewed by: Dr. oBone Bailey MD (Electronically Signed) Final Date: 23 August 2023 17:52
--- NOTE | 2023-08-23 17:55 | CA ---
Stress Echo Report Eileen Horton Age: 63 Gender: F : 1960 Exam Date: 08/23/2023 11:13 Exam Location: [facility] Ht (in): 63 Wt (lb): 133 Ordering Physician: Kay Simpson Referring Physician: [id number] Orozco Program Manager Environmental Planning: ET Technologist Procedure CPT: Indication: CP ICD-9 Codes: Rhythm: Patient History: Abnormal EKG and some chest pain Cardiac Medications: Medications in past 24 hours: Contrast: Stress Results Protocol: Pan Total dose(mL): Exercise Duration (min:sec): 11:[address] Depression (mm): Angina Score: Walsh Score: METS: 12.1 Resting HR: 74 Resting BP: 157 / 80 Peak HR: 172 Peak BP: 177 / 81 Max Predicted HR: 158 109 % Max Predicted HR Target HR: 134 Double Product: 44824 Stress Summary: BP Response: Reason for Termination: Reached target heart rate or work-load Cardiac Symptoms: No symptoms ECG Analysis Resting ECG: Normal sinus rhythm normal axis normal intervals Stress ECG: Patient exercised on Pan protocol for 11 minutes achieving 85% of predicted maximal heart rate without chest pain at peak exercise it was half a millimeter ST segment depression noted in inferolateral leads Arrhythmia: No significant cardiac arrhythmia Echo Analysis Resting Echo: Normal left ventricular size wall motion systolic function Peak Echo Analysis: Normal hyperdynamic response was myocardium noted MEASUREMENTS (Male/Female) Normal Values CONCLUSIONS Good exercise tolerance Negative stress test by EKG criteria Negative stress echo Dr. Bonoe Bailey MD (Electronically Signed) Final Date: 23 August 2023 17:55
[2023-08-23 19:56] VITALS: BP 140/83
--- NOTE | 2023-08-23 20:16 | P.DS ---
Providers Date of admission: 08/21/23 23:08 Expected date of discharge: 08/23/23 Attending physician: Santo Gamble Consults: 08/21/23 23:07 Consult Physician Routine Consulting Provider: [facility] Consult Reason/Comments: chest pain Do you want consulting provider notified?: Yes Primary care physician: Jeremiah Zavaleta [facility] Course: Chief Complaint: Chest pain Pleasant 63-year-old patient who follows with Jeremiah Zavaleta. Patient's fairly good health. Except for hyperlipidemia. 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 Patient of the shingles vaccination short about 17 days ago. Has had some headache off and on. About 2 weeks ago started having some chest discomfort on and off. Not related to activity. Central. No radiation. Patient is chronically stressed out with decreased sleep. No fever no chills. Had a cardiac catheterization 2008 that was unremarkable. Was concerned about a cardiac cause hence presented. August 23: Underwent stress echocardiogram and 2-D echo. Unremarkable. Samantha added for blood pressure. Patient follows with Dr. Salazar Mackey outpatient. Spoke at length to the patient about stress management. Questions answered. Discussion and discharge planning more than 35 minutes Past medical history to include: Hyperlipidemia Social history: This is a . Takes care of [id number] autistic child. Physical examination: VITAL SIGNS: 97.9, 71, 16, 140/83, 100% room air GENERAL: Sitting up in chair, comfortable EYES: Pupils equal. Conjunctiva normal. HEENT: External appearance of nose and ears normal, oral cavity grossly normal. NECK: JVD not raised; masses not palpable. HEART: First and second heart sounds are normal; no edema. LUNGS: Respiratory rate normal; clear to auscultation. ABDOMEN: Soft, nontender, liver spleen not palpable, no masses palpable. PSYCH: [Alert and oriented x3; mood and affect anxious, tired appearing. INVESTIGATIONS, reviewed in the clinical context: 2-D echocardiogram EF 55-60% Stress echocardiogram: Negative for ischemia White count 4.5 hemoglobin 12.6 platelets 254 potassium 4.1 creatinine 0.66 Troponin I 3 negative Influenza type A, B, RSV, COVID-19: Not detected EKG tracing personally reviewed by me-some ST segment depression in inferior lateral leads. Chest x-ray film personally reviewed by me-unremarkable Assessment plan: -Psychosomatic anterior chest fall pain from social stressors Seen by cardiology. Negative stress echocardiogram. -Essential hypertension Cozaar 25 mg daily at bedtime -Hyperlipidemia Lipitor -Social stresses from taking care of autistic child Patient counseled -Chronic insomnia from social stressors Melatonin [id number] Disposition: Home Past Medical History Past Medical History: Hyperlipidemia History of Any Multi-Drug Resistant Organisms: None Reported Past Surgical History: Heart Catheterization Smoking Status: Never smoker Past Alcohol Use History: None Reported Past Drug Use History: None Reported Plan - Discharge Summary Discharge Rx Participant: Yes New Discharge Prescriptions: New Losartan [Cozaar] 25 mg PO HS #30 tab Continue Multivitamins, Thera [Multivitamin (formulary)] 1 tab PO DAILY Alendronate Sodium [Fosamax] 70 mg PO TU Calcium(Unknown Dose) 1 tab PO DAILY Atorvastatin [Lipitor] 20 mg PO HS Vitamin D3(Unknown Dose) 1 tab PO DAILY L.acidoph,Paracasei, B.lactis [Probiotic] 1 cap PO DAILY Cranberry(Unknown Dose) 1 tab PO DAILY Co Q-10(Unknown Dose) 1 tab PO DAILY Discharge Medication List Alendronate Sodium [Fosamax] 70 mg PO TU 08/21/23 [History] Atorvastatin [Lipitor] 20 mg PO HS 08/21/23 [History] Calcium(Unknown Dose) 1 tab PO DAILY 08/21/23 [History] Co Q-10(Unknown Dose) 1 tab PO DAILY 08/21/23 [History] Cranberry(Unknown Dose) 1 tab PO DAILY 08/21/23 [History] L.acidoph,Paracasei, B.lactis [Probiotic] 1 cap PO DAILY 08/21/23 [History] Multivitamins, Thera [Multivitamin (formulary)] 1 tab PO DAILY 08/21/23 [History] Vitamin D3(Unknown Dose) 1 tab PO DAILY 08/21/23 [History] Losartan [Cozaar] 25 mg PO HS #30 tab 08/23/23 [Rx] Follow up Appointment(s)/Referral(s): Salazar Mackey MD [STAFF PHYSICIAN] - 6 Weeks Jeremiah Zavaleta MD [Primary Care Provider] - 1-2 days Patient Instructions/Handouts: Chest Pain (DC)
[2023-08-23] MEDS: ATORVASTATIN 20 MG TAB PO SCH (20:30)
== END 2023-08-23 20:33 | disposition home or self-care (01) ==
LOC: EC 18:01 → 6NMEDSUR 23:08
PROVIDERS: ADMIT Hospitalist; ATTEND Hospitalist
DX: R07.89 Other chest pain (principal); E78.5 Hyperlipidemia, unspecified; I10 Essential (primary) hypertension; F51.04 Psychophysiologic insomnia; Z20.822 Contact with and (suspected) exposure to COVID-19; Z73.3 Stress, not elsewhere classified; Z79.83 Long term (current) use of bisphosphonates; Z79.899 Other long term (current) drug therapy
CPT/HCPCS: 96376; 96372 ×2; 96361; 96374; 99285; 36415; 93005; 93306; 93351; 85379; 83880; 80053; 80048; 83690; 83735; 84484 ×2; 85025 ×2; 85610; 85730; 87636; 71046; G0378 ×3; J1644; J1885 ×2